=== PATIENT | male | born 1965 | race Caucasian/White ===

== ENCOUNTER 2022-02-07 10:11 | Emergency (ER) | payer MEDICARE, SELFPAY ==
[2022-02-07 10:17] VITALS: BP 130/75; PULSE 65; RESP 18; TEMP 36.1; O2SAT 95; BMI 38.1
--- NOTE | 2022-02-07 10:28 | ED_ITS ---
HPI - Skin/Abscess/Foreign Bdy General: Chief complaint: Skin/Abscess/Foreign Body Stated complaint: left back of leg has a bite Time Seen by Provider: 02/07/22 10:22 Source: patient Mode of arrival: ambulatory Limitations: no limitations History of Present Illness: 56-year-old male presents to the ER today for an insect bite to the left lower leg. Patient reports this is on the back of the knee. He just noticed it yesterday and this morning noticed it is slightly tender and red and has a ring around it. Patient denies removing a tick. Denies this is itchy. Does not know what might have bit him. Patient denies ever having had a reaction to something like this before. Denies any fever or chills. Review of Systems General: Reports: 10 or more systems reviewed and unremarkable except in HPI and below Physical Exam Const: COMMON NORMALS: no acute distress, average body habitus, patient oriented x3, no limitations, healthy appearing, alert and well nourished Resp: COMMON NORMALS: normal respiratory effort and No retractions Cardio: COMMON NORMALS: regular rate and regular rhythm RATE: regular rate RHYTHM: regular rhythm Extremity: COMMON NORMALS: normal to inspection, full ROM and no pedal edema Neuro: COMMON NORMALS: patient oriented x3 SENSORIUM/ORIENTATION: Yes alert Psych: COMMON NORMALS: mental status grossly normal and Normal thought process present THOUGHT PROCESS: Normal thought process present Skin: NARRATIVE SKIN EXAM: Patient has an insect bite noted to the posterior left knee. There is some mild bruising and color changes surrounding the bite however overall it does not appear infected. It is slightly tender when deep palpation is applied. No drainage noted. Not indurated or fluctuant. Course ED course: Patient presents to the ER today for an insect bite to the left knee. Patient noticed this yesterday and it is slightly worse today. He reports mild pain associated. Patient has no other symptoms at this time. Patient here for evaluation because he felt like he has never had a bite like this before. He is new to [place] and is concerned for [place] insects. Vital Signs: Vital signs: Vital Signs Temperature 97.0 F L 02/07/22 10:17 Pulse Rate 65 02/07/22 10:17 Respiratory Rate 18 02/07/22 10:17 Blood Pressure 130/75 02/07/22 10:17 Pulse Oximetry 95 02/07/22 10:17 MDM - Skin/Abscess/Foreign Bdy Medicial Decision Making 56-year-old male presents to the ER today for insect bite to the left knee. This is located on the posterior aspect. He reports mild tenderness. Denies any drainage. He reports some redness and a ring around it. Patient is concerned he might have been bit by something concerning however reports no systemic symptoms. Patient has not done any thing for symptoms at this time. On exam, patient has a likely insect bite to the posterior aspect of the left knee. There is no drainage no fluctuance or induration noted. Slight bruising and skin color changes just surrounding the lesion however no obvious ring noted. Only tender to deep palpation. No signs of systemic infection. We will treat with a topical antibiotic. Recommended patient continue to monitor this. For any new or worsening symptoms return to the ER. Follow-up with PCP in 7 to 10 days. Patient verbalized understanding and is in agreement with treatment plan. Critical Care Time Critical Care Time: Critical Care Time: No Discharge Plan Discharge Patient Disposition: Home Clinical Impression: Insect bite Condition: Stable Prescriptions: New mupirocin calcium 2 % cream 1 applic topical BID 7 Days Qty: 15 0RF Discharge Orders: Discharge ED (Routine); Ordered 02/07/22 Ordered By: Lili Nur Discharge Diet: Usual diet Discharge Activity: Resume usual activity Patient Instructions: Opioid Safety Activity Restrictions/Additional Instructions: Cream as prescribed. Watch for signs of systemic infection including fever, nausea, vomiting. Follow-up with PCP in 7 to 10 days if no improvement. Coding Level of Care Code ED Medical Authorization Specialist for Isaiah Kinney
== END 2022-02-07 10:36 | disposition home or self-care (01) ==
PROVIDERS: Emergency Provider Physician Assistant
DX: S80.862A Insect bite (nonvenomous), left lower leg, initial encounter (principal); W57.XXXA Bitten or stung by nonvenomous insect and other nonvenomous arthropods, initial encounter
CPT/HCPCS: 99281